=== PATIENT | male | born 1945 | race Caucasian/White ===

== ENCOUNTER 2019-02-03 14:53 | Outpatient (CLI) | payer MEDICARE, BC | END 2019-02-03 23:59 | disposition home or self-care (01) | LOC: CARD DIAG 14:53 | PROVIDERS: ATTEND Internal Medicine Critical Care Medicine | DX: I08.8 Other rheumatic multiple valve diseases (principal); R06.02 Shortness of breath; I10 Essential (primary) hypertension; Z79.899 Other long term (current) drug therapy; E78.00 Pure hypercholesterolemia, unspecified | CPT/HCPCS: 93306 ==